=== PATIENT | female | born 1990 | race African-American/Black ===

== ENCOUNTER 2024-09-12 18:49 | Outpatient (CLI) | payer OTHER ==
[2024-09-12 19:25] LABS: Appearance,Urine Clear (Clear); Bilirubin,Urine Negative (Negative); Blood,Urine Negative (Negative); Color,Urine Colorless; Glucose,Urine (UA) Negative (Negative); Ketones,Urine Negative (Negative); Leukocyte Esterase,Urine Negative (Negative); Nitrite,Urine Negative (Negative); PH, Urine 6.5 (5.0-8.0); Protein,Urine Negative (Negative); Urobilinogen,Urine <2.0 mg/dL (<2.0)
[2024-09-12 20:27] VITALS: BP 162/84; PULSE 77; RESP 16; TEMP 96.4
== END 2024-09-12 20:15 | disposition home or self-care (01) ==
LOC: FBPOP 18:49
PROVIDERS: ATTEND Obstetrics & Gynecology
DX: Z53.9 Procedure and treatment not carried out, unspecified reason (principal)
CPT/HCPCS: 81003; 99215